=== PATIENT | female | born 1970 | race Hispanic/Latino ===

== ENCOUNTER 2018-06-18 22:35 | Emergency (ER) | payer BC ==
[2018-06-18 22:57] VITALS: RESP 18; O2SAT 100
--- NOTE | 2018-06-18 23:52 | ED PDOC ---
HPI: Abdomen Time Seen by Provider: 06/18/18 23:45 Chief Complaint (Nursing): Abdominal Pain Chief Complaint (Provider): abdominal pain History Per: Patient History/Exam Limitations: no limitations Onset/Duration Of Symptoms: Hrs (4) Current Symptoms Are (Timing): Still Present Additional Complaint(s): 48 y/o female presents for evaluation of upper abdominal pain x 1 day, worse x 4 hours after eating soup. Patient describes pressure-like pain in the top of her abdomen right below her ribs with excessive belching. Patient feels pain to be gas pain, as she has had this in past and was evaluated in ED for it years ago. Some relief provided with Mylanta and Gas-x. Denies fever, vomiting, chest pain, shortness of breath, palpitations, changes in bowel movements, urinary symptoms. Past Medical History Reviewed: Historical Data, Nursing Documentation, Vital Signs Vital Signs: Last Vital Signs Temp 98 F 06/18/18 22:54 Pulse 96 H 06/18/18 22:54 Resp 18 06/18/18 22:54 BP 178/121 H 06/18/18 22:54 Pulse Ox 100 06/18/18 22:54 - Medical History PMH: Diabetes, HTN - Surgical History Surgical History: No Surg Hx - Family History Family History: States: No Known Family Hx - Living Arrangements Living Arrangements: With Family - Home Medications Home Medications: Ambulatory Orders Medication Instructions Recorded Naproxen [Naprosyn] 500 mg PO Q12 PRN #20 tablet 06/19/18 - Allergies Allergies/Adverse Reactions: Allergies Allergy/AdvReac Type Severity Reaction Status Date / Time No Known Allergies Allergy Verified 06/18/18 22:54 Review of Systems ROS Statement: Except As Marked, All Systems Reviewed And Found Negative Gastrointestinal: Positive for: Abdominal Pain Physical Exam - Reviewed Nursing Documentation Reviewed: Yes Vital Signs Reviewed: Yes - Physical Exam Appears: Positive for: Well, Non-toxic, Uncomfortable Head Exam: Positive for: ATRAUMATIC, NORMAL INSPECTION, NORMOCEPHALIC Skin: Positive for: Normal Color Eye Exam: Positive for: Normal appearance ENT: Positive for: Normal ENT Inspection Cardiovascular/Chest: Positive for: Regular Rate, Rhythm Respiratory: Positive for: Normal Breath Sounds Gastrointestinal/Abdominal: Positive for: Bowel Sounds, Soft, Tenderness (superior aspect epigastric region tender to palpate) Back: Positive for: Normal Inspection Extremity: Positive for: Normal ROM Neurologic/Psych: Positive for: Alert, Oriented (x3) - Laboratory Results Result Diagrams: 06/19/18 00:05 06/19/18 00:05 - ECG ECG: Positive for: Viewed By Me (reviewed by ED attending) ECG Rhythm: Positive for: Sinus Rhythm O2 Sat by Pulse Oximetry: 100 - Progress ED Course And Treament: -cbc -cmp -ekg -urinalysis -IV pepcid -GI cocktail On re-eval, patient states medications helped alleviate pain, but now returning. IV toradol, RUQ u/s ordered Right upper quadrant ultrasound. Indication: Right upper quadrant pain. Technique: Real-time ultrasound images were obtained. Findings: There is normal in size measuring 16.2 cm. Hepatic echogenicity suggestive of hepatic steatosis. Nondilated common bile duct measuring 4.8 mm. Multiple gallstones. Normal gallbladder wall thickness measuring 1.5 mm. Normal kidney is normal in size measuring 11.5x4x5 cm. Nonaneurysmal aorta measuring 1.6 cm. Impression: Cholelithiasis without evidence of acute cholecystitis. Hepatic steatosis. On re-eval, patient sleeping; upon awakening states pain resolved Patient educated on findings, discharged with rx Naproxen Advised diet modification Follow up general surgery Return precautions given Patient demonstrates full understanding of discharge instructions Patient requires no further intervention in the ED and is stable for discharge at this time Disposition - Clinical Impression Clinical Impression: Cholelithiasis - Patient ED Disposition Is Patient to be Admitted: No Counseled Patient/Family Regarding: Studies Performed, Diagnosis, Need For Followup, Rx Given - Disposition Referrals: Matt Cordova MD [Staff Provider] - Disposition: Routine/Home Disposition Time: 04:03 Condition: IMPROVED Prescriptions: Naproxen [Naprosyn] 500 mg PO Q12 PRN #20 tablet PRN Reason: Pain, Moderate (4-7) Instructions: Gallstones Forms: [employer] (Albanian)
[2018-06-19 00:17] LABS: BASO # 0.1 K/uL (0.0-0.2); BASO % 0.6 % (0.0-2.0); EOS # 0.1 K/uL (0.0-0.7); EOS % 1.5 % (0.0-4.0); HEMOGLOBIN 10.5 g/dL (12.0-16.0); LYMPH # 1.5 K/uL (1.0-4.3); LYMPH % 16.2 % (20.0-40.0); MEAN CELL VOLUME 76.6 fl (81.0-99.0); MEAN CORPUSCULAR HEMOGLOBIN 24.9 pg (27.0-31.0); MEAN CORPUSCULAR HGB CONC 32.5 g/dL (33.0-37.0); MEAN PLATELET VOLUME 7.8 fl (7.2-11.7); MONO # 0.7 K/uL (0.0-0.8); MONO % 7.4 % (0.0-10.0); NEUT # 6.7 K/uL (1.8-7.0); NEUT % 74.3 % (50.0-75.0); NRBC % 0.1 % (0.0-0.0); RBC 4.22 Mil/uL (3.80-5.20); RED CELL DISTRIBUTION WIDTH 17.1 % (11.5-14.5); WHITE BLOOD COUNT 9.1 K/uL (4.8-10.8)
[2018-06-19 00:26] LABS: BLOOD UREA NITROGEN 19 mg/dl (7-17); CALCIUM 9.5 mg/dL (8.4-10.2); GFR NON-AFRICAN AMERICAN > 60; LIPASE 96 U/L (23-300)
[2018-06-19 00:28] LABS: ALB/GLOB RATIO 1.2 (1.0-2.1); ALBUMIN 4.2 g/dL (3.5-5.0); ALT/SGPT 20 U/L (9-52); AST/SGOT 51 U/L (14-36)
[2018-06-19] MEDS ORDERED: Alum-Mag Hydrox-Simethicone Susp (30 mL) PO STA (01:43)
[2018-06-19] MEDS ORDERED: Atrop/Hyos/Scop/PhenoB Elixir PO STA (01:43)
[2018-06-19 01:50] LABS: SQUAMOUS EPITHIAL 3 /hpf (0-5); URINE BACTERIA RARE (<OCC); URINE BILIRUBIN NEGATIVE (NEGATIVE); URINE BLOOD NEGATIVE (NEGATIVE); URINE CLARITY SLIGHTY-CLOUDY (Clear); URINE COLOR YELLOW (YELLOW); URINE GLUCOSE (UA) NEG (Normal); URINE LEUKOCYTE ESTERASE NEG Leu/uL (Negative); URINE PROTEIN NEGATIVE (NEGATIVE); URINE UROBILINOGEN 0.2-1.0 mg/dL (0.2-1.0)
[2018-06-19 04:43] VITALS: BP 150/77; PULSE 79; TEMP 97.9
--- NOTE | 2018-06-19 06:45 | CARD ---
APPROVED REPORT Date of service: 06/18/2018 EKG Measurement Heart [id number] <Conclusion> Normal sinus rhythm Normal ECG
--- NOTE | 2018-06-19 08:10 | US ---
Date of service: 06/19/2018 HISTORY: abd pain COMPARISON: None. TECHNIQUE: Sonographic evaluation of the right upper quadrant of the abdomen. FINDINGS: LIVER: Measures 16.2 cm in length. Diffuse increased echogenicity of the liver parenchyma. No mass. No intrahepatic bile duct dilatation. GALLBLADDER: Multiple gallstones present. No ancillary signs seen to suggest acute cholecystitis. COMMON BILE DUCT: Measures 3.8 to 4.8 mm. No stones. No dilatation. PANCREAS: Unremarkable as visualized. No mass. No ductal dilatation. RIGHT KIDNEY: Measures 11.5 x 4.0 x 5.0 cm in length. Normal echogenicity. No calculus, mass, or hydronephrosis. AORTA: No aneurysmal dilatation. IVC: Unremarkable. OTHER FINDINGS: None . IMPRESSION: Multiple gallstones. No ancillary signs seen to suggest acute cholecystitis. Diffuse increased liver echogenicity-compatible with hepatic steatosis and/or other liver parenchymal diffuse pathology Concordant results (preliminary interpretation) provided by [employer].
== END 2018-06-19 04:20 | disposition home or self-care (01) ==
LOC: H.ER 22:35
DX: K80.20 Calculus of gallbladder without cholecystitis without obstruction (principal); E11.9 Type 2 diabetes mellitus without complications; I10 Essential (primary) hypertension
CPT/HCPCS: 76705; 80053; 81003; 81025; 82948; 83690; 85025; 93005; 96374; 99285; J1885